=== PATIENT | female | born 1970 | race Asian ===

== ENCOUNTER 2022-03-12 08:27 | Emergency (ER) | payer BC ==
[2022-03-12 09:09] LABS: Bilirubin Neg (Negative); Blood, Urine 25 (Negative); Clarity Clear (Clear); Glucose, Urine (Dipstick) Normal (Negative); Ketone, Urine Negative (Negative); Leukocyte Negative (Negative); Nitrite Negative (Negative); Protein, Urine (Dipstick) Negative (Neg-Trace); Urobilinogen Normal mg/dL (Less than 2)
[2022-03-12 09:28] LABS: Bacteria/HPF 2+ HPF (None Seen); Mucous/LPF 1+ LPF (<2+); RBC/HPF 0-3 HPF (0-3); Squamous Epithelial 0-3 HPF (0-3); WBC/HPF 0-3 HPF (0-3)
[2022-03-12 09:35] LABS: #Basophils 0.1 10x3/uL (0.0-0.2); #Eosinphils 0.3 10x3/uL (0.0-0.5); #Monocytes 0.6 10x3/uL (0.0-1.1); #Neutrophils 5.1 10x3/uL (1.5-8.4); %Basophils 0.7 % (0.0-2.0); %Eosinophils 3.2 % (0.0-6.0); %Lymphocytes 31.5 % (18.0-47.0); %Monocytes 6.2 % (0.0-10.0); %Neutrophils 58.2 % (40.0-75.0); Mean Corpuscular HGB CONC 34.2 g/dL (32.0-36.0); Mean Corpuscular Hemoglobin 30.2 pg (27.0-33.0); Mean Corpuscular Volume 88.3 fl (81.6-98.3); Mean Platelet Volume 9.5 fl (7.4-10.4); Platelet Count 266 10x3/uL (150-450); RBC Distribution Width 12.2 % (11.5-14.5); Red Blood Cell (RBC) Count 4.63 10x6/uL (3.90-5.03); White Blood Cell (WBC) Count 8.8 10x3/uL (3.5-10.5)
[2022-03-12 09:48] LABS: ALT (SGPT) 32 U/L (8-55); AST (SGOT) 29 U/L (5-34); Albumin 4.8 g/dL (3.5-5.0); Alkaline Phosphatase 50 U/L (40-110); Anion Gap 16 mmol/L (10-20); BUN (Urea Nitrogen) 22 mg/dL (9.8-20.1); Bilirubin, Total 0.5 mg/dL (0.2-1.2); Calc. Creatinine Clearance 0 mL/min (70-130); Calcium 10.2 mg/dL (7.8-10.44); Carbon Dioxide 26 mmol/L (22-29); Chloride 106 mmol/L (98-107); Estimated GFR 77; Globulin 3.2 g/dL (2.4-3.5); Glucose 108 mg/dL (70-105); Lipase 48 U/L (8-78); Potassium 4.5 mmol/L (3.5-5.1); Sodium 143 mmol/L (136-145)
[2022-03-12 10:05] LABS: Pregnancy Test - Urine (BHCG) Negative (Negative); Pregu Control Background? CLEAR/WHITE (CLR/WHITE); Pregu Control Bar Appear? YES (CONTROL BAR)
[2022-03-12] MEDS ORDERED: Ketorolac Tromethamine 30 MG/ML VIAL ONE (11:22)
[2022-03-12] MEDS ORDERED: Ondansetron PF 4 MG/2 ML Vial ONE (11:22)
[2022-03-12] MEDS ORDERED: Morphine 4 MG/ML VIAL ONE (11:22)
[2022-03-12] MEDS ORDERED: Iopamidol 300 61% 100 ML VIAL FS ONE (14:44)
== END 2022-03-12 11:14 | disposition home or self-care (01) ==
LOC: CSHERS 08:27
DX: N13.2 Hydronephrosis with renal and ureteral calculous obstruction (principal)
CPT/HCPCS: 36415; 74177; 80053; 81003; 81015; 81025; 83690; 85025; 96374; 96375; J1885; J2270; J2405; Q9967